=== PATIENT | female | born 1935 | race Asian ===

== ENCOUNTER 2017-03-08 15:28 | Inpatient (IN) | payer OTHER ==
[~2017-03-08] VITALS: Ht 162.6 cm; Wt 46.8 kg
[2017-03-08 16:49] LABS: BASOPHIL % 0.8 % (0-2); PLATELET COUNT 235 x10^3mcL (130-400); RED CELL DISTRIBUTION WIDTH 13.4 % (11.5-14.5)
[2017-03-08 17:03] LABS: CALCIUM 9.1 mg/dL (8.5-10.1); CARBON DIOXIDE 30.5 mmol/L (21-32); CHLORIDE SERUM 105 mmol/L (98-107); CREATININE SERUM 1.3 mg/dL (0.6-1.0); GLUCOSE SERUM 183 mg/dL (74-106); POTASSIUM SERUM 4.2 mmol/L (3.5-5.1); SODIUM SERUM 144 mmol/L (136-145)
[2017-03-08 17:15] LABS: ALBUMIN 3.9 g/dL (3.4-5.0); ALKALINE PHOSPHATASE 41 U/L (46-116); ALT/SGPT 21 U/L (14-59); AMYLASE 89 U/L (25-115); AST/SGOT 17 U/L (15-37); BILIRUBIN TOTAL 0.5 mg/dL (0.20-1.00); LIPASE 333 IU/L (73-393); TOTAL PROTEIN, SERUM 7.3 g/dL (6.4-8.2)
[2017-03-08] MEDS ORDERED: ATENOLOL25 MG PO (17:24)
[2017-03-08] MEDS ORDERED: PRILOSEC OTC20 M1 PO (17:25)
[2017-03-08] MEDS ORDERED: CALCIUM CARBO1250 MG PO (17:25)
[2017-03-08] MEDS ORDERED: METFORMIN HCL500 MG PO (17:25)
[2017-03-08] MEDS ORDERED: LISINOPRIL10 MG PO (17:25)
[2017-03-08] MEDS ORDERED: MAGNESIUM OXID400 MG PO (17:25)
[2017-03-08] MEDS ORDERED: ZOC20 PO (17:26)
[2017-03-08] MEDS ORDERED: LOPERAMIDE HCL2 M1 PO (17:26)
[2017-03-08] MEDS ORDERED: ASPIR 8181 MG PO (17:27)
[2017-03-08 20:06] VITALS: BP 122/74
[2017-03-08 20:11] VITALS: Ht 162.6 cm; Wt 46.8 kg
[2017-03-08 20:41] LABS: FREE T4 1.3 ng/dL (0.76-1.46); FREE THYROXINE INDEX 3.4 ug/dL (1.4-4.5); T3 TOTAL 0.99 ng/mL; T4(THYROXINE) 10.3 ug/dL (4.7-13.3)
[2017-03-08 21:34] LABS: CHOLESTEROL/HDL RATIO 1.8
[2017-03-09 05:46] VITALS: BP 123/48; BP 150/67
[2017-03-09 06:04] LABS: BASOPHIL % 0.6 % (0-2); PLATELET COUNT 192 x10^3mcL (130-400); RED CELL DISTRIBUTION WIDTH 13.6 % (11.5-14.5)
[2017-03-09 06:16] LABS: CALCIUM 8.5 mg/dL (8.5-10.1); CARBON DIOXIDE 30.4 mmol/L (21-32); CHLORIDE SERUM 106 mmol/L (98-107); GLUCOSE SERUM 184 mg/dL (74-106); MAGNESIUM 1.8 mg/dL (1.8-2.4); PHOSPHOROUS 2.9 mg/dL (2.5-4.9); POTASSIUM SERUM 4.9 mmol/L (3.5-5.1); SODIUM SERUM 142 mmol/L (136-145)
[2017-03-09 08:11] VITALS: BP 133/55
[2017-03-09 13:51] VITALS: BP 116/54
[2017-03-09 17:29] VITALS: BP 107/55
[2017-03-09 21:46] VITALS: BP 117/49
[2017-03-10 05:30] VITALS: BP 106/67
[2017-03-10 06:03] LABS: BASOPHIL % 0.6 % (0-2); PLATELET COUNT 198 x10^3mcL (130-400); RED CELL DISTRIBUTION WIDTH 13.5 % (11.5-14.5)
[2017-03-10 06:32] LABS: CALCIUM 8.5 mg/dL (8.5-10.1); CARBON DIOXIDE 30.8 mmol/L (21-32); CHLORIDE SERUM 111 mmol/L (98-107); CREATININE SERUM 1.1 mg/dL (0.6-1.0); GLUCOSE SERUM 124 mg/dL (74-106); MAGNESIUM 1.8 mg/dL (1.8-2.4); POTASSIUM SERUM 4.8 mmol/L (3.5-5.1); SODIUM SERUM 146 mmol/L (136-145)
[2017-03-10 08:07] VITALS: BP 106/67
[2017-03-10] MEDS ORDERED: COL100 PO (08:15)
[2017-03-10] MEDS ORDERED: SIMETHICONE80 MG CH (08:15)
[2017-03-10] MEDS ORDERED: BEN10 PO (08:31)
== END 2017-03-10 09:45 | disposition home or self-care (01) | DRG 388 ==
LOC: ED 15:28 → DU 18:54
PROVIDERS: Emergency Medicine; Family Medicine; ADMIT Family Medicine
DX: K56.41 Fecal impaction (principal); N17.0 Acute kidney failure with tubular necrosis; Z68.1 Body mass index [BMI] 19.9 or less, adult; D68.69 Other thrombophilia; E87.0 Hyperosmolality and hypernatremia; K56.7 Ileus, unspecified; E86.0 Dehydration; I12.9 Hypertensive chronic kidney disease with stage 1 through stage 4 chronic kidney disease, or unspecified chronic kidney disease; E11.22 Type 2 diabetes mellitus with diabetic chronic kidney disease; E11.65 Type 2 diabetes mellitus with hyperglycemia; E11.51 Type 2 diabetes mellitus with diabetic peripheral angiopathy without gangrene; D64.9 Anemia, unspecified; E78.5 Hyperlipidemia, unspecified; N18.9 Chronic kidney disease, unspecified; K21.9 Gastro-esophageal reflux disease without esophagitis; M19.90 Unspecified osteoarthritis, unspecified site; Z79.84 Long term (current) use of oral hypoglycemic drugs; Z85.42 Personal history of malignant neoplasm of other parts of uterus; E87.8 Other disorders of electrolyte and fluid balance, not elsewhere classified
CPT/HCPCS: 80307; 82962; 83880; 84439; J1956; J2060; J2405; J3010; J3490; J7030; J7042; J8597; Q0092